=== PATIENT | male | born 1945 | race Caucasian/White ===

== ENCOUNTER 2020-05-30 21:54 | Emergency (ER) | payer MEDICARE, BC ==
[2020-05-30] MEDS ORDERED: DEXAMETHASONE INJ 4 MG/ML VIAL IV ONE (22:01)
--- NOTE | 2020-05-30 22:05 | ED.PDOC ---
History of Present Illness - General Chief Complaint: Respiratory Problem Stated Complaint: shortness of breath, + COVID Time Seen by Provider: 05/30/20 21:56 Source: patient, RN notes reviewed, Vital Signs reviewed Exam Limitations: no limitations - History of Present Illness Comments: Pt is a 74 yo male with PMH of afib, CAD who presents to ED with shortness of breath. States he had close contact with his granddaughter recently and she later tested + for COVID 19. States he began to have fatigue, nausea, bodyaches and cough 1 week ago and began feeling short of breath 2 days ago. He was seen in the [place] ED last night and tested positive for COVID and was discharged home on no medications. Tonight, he still feels short of breath so came to ED for evaluation. He denies CP, fever, vomiting or diarrhea. Allergies/Adverse Reactions: Allergies NO KNOWN ALLERGY Allergy (Verified 05/30/20 22:24) Home Medications: Ambulatory Orders Allopurinol [Zyloprim] 100 mg PO DAILY 05/30/20 Apixaban [Eliquis] 5 mg PO BID 05/30/20 Aspirin [Celia Low Dose] 81 mg PO DAILY 05/30/20 B-Complex W/ Folic Acid [B Complex] 1 tab PO DAILY 05/30/20 Furosemide [Lasix] 40 mg PO DAILY 05/30/20 Gabapentin 300 mg PO BID 05/30/20 Lisinopril 20 mg PO DAILY 05/30/20 Metoprolol Tartrate [Lopressor] 100 mg PO DAILY 05/30/20 Nitroglycerin 0.4 mg Tab [Nitrostat] 1 ea SL PRN PRN 05/30/20 Pantoprazole Tablet [Protonix] 40 mg PO DAILY 05/30/20 Pentoxifylline [TRENtal] 400 mg PO TID 05/30/20 Pravastatin Sodium 40 mg PO DAILY 05/30/20 Prednisone 40 mg PO DAILY 5 Days #10 tab 05/30/20 Spironolactone 25 mg PO DAILY 05/30/20 Review of Systems - Review of Systems Constitutional: States: malaise. Denies: chills, fever EENTM: Denies: nose congestion, throat pain Respiratory: States: cough, short of breath Cardiology: Denies: chest pain, edema, palpitations, syncope Gastrointestinal/Abdominal: States: nausea. Denies: abdominal pain, diarrhea, vomiting Musculoskeletal: Denies: back pain, neck pain Skin: Denies: rash Neurological: Denies: headache, numbness All other Systems: Reviewed and Negative Family Medical History - Family History Mother Family History: Unknown Physical Exam - Physical Exam General Appearance: Alert, No apparent distress, Other - Nontoxic appearing Neck: full range of motion, supple Respiratory: other - Good air movement. No wheezes or crackles. Speaks in full sentences. No respiratory distress or tachypnea Cardiovascular/Chest: regular rate, rhythm, no edema Gastrointestinal/Abdominal: non tender, soft, no pulsatile mass Extremity: normal range of motion, non-tender, no calf tenderness Neurologic: no motor/sensory deficits, alert, normal mood/affect Skin Exam: normal color, warm/dry Progress - Progress Progress: 05/30/20 22:08 Pt presents with shortness of breath and fatigue for the past week. He has had recent exposure to known COVID positive person and tested positive himself last night. He has no respiratory distress and O2 sat is 95% on room air. Will check labs and CXR for further evaluation. Differential: Pneumonia, sepsis, COVID, bronchitis, COPD, dysrrhythmia, ACS 05/30/20 23:06 Patient has had O2 sat greater than 94% on room air throughout ED stay. No hypoxia or respiratory distress. Vital signs, imaging and labs are reassuring. He does have a chronic history of atrial fibrillation and is on metoprolol and Eliquis. He has been rate controlled in the ED. Also has history of chronic kidney disease which is at baseline today per patient. Will treat with short course of steroids and he can take antihistamines as needed for nasal congestion. I have given him strict return to ED precautions and he feels comfortable going home and will follow up with PCP tomorrow for continued evaluation. Strict return precautions given. - Results/Orders Results/Orders: EKG- atrial fibrillation, rate 85, nml QRS interval, no T wave abnormality CHEST XRAY CLINICAL HISTORY: short of breath COMPARISON: None. TECHNIQUE: XR CHEST 1 VIEW 05/30/2020 10:00 PM CDT FINDINGS: The heart is mildly enlarged. There is minimal bibasilar atelectasis. There is no pleural effusion. There is no pneumothorax. There are no acute osseous findings. IMPRESSION: No definite pneumonia. 05/30/20 22:00 IV:Start .ONCE 05/30/20 22:15 EKG .ONCE Laboratory Results - last 24 hr 05/30/20 05/30/20 05/30/20 22:17 22:17 22:17 WBC 6.1 RBC 4.18 L Hgb 12.9 L Hct 37.7 L MCV 90.3 MCH 30.9 MCHC 34.2 RDW 14.9 H Plt Count 218 MPV 7.7 Absolute Neuts (auto) 3.80 Absolute Lymphs (auto) 1.50 Absolute Monos (auto) 0.80 Absolute Eos (auto) 0.00 Absolute Basos (auto) 0.00 Neutrophils % 61.6 Lymphocytes % 24.1 Monocytes % 13.5 H Eosinophils % 0.3 L Basophils % 0.5 Sodium 129 L Potassium 4.8 Chloride 95 L Carbon Dioxide 23 Anion Gap 15.8 BUN 19 H Creatinine 1.74 H BUN/Creatinine Ratio 10.9 Random Glucose 94 Serum Osmolality 260.9 L Calcium 9.0 Total Bilirubin 0.8 AST 26 ALT 16 Alkaline Phosphatase 45 Troponin I 0.02 B-Natriuretic Peptide 187.0 H Serum Total Protein 8.5 H Albumin 4.0 Globulin 4.5 H Albumin/Globulin Ratio 0.9 L Departure - Departure Clinical Impression: COVID-19 Dyspnea Qualifiers: Dyspnea type: unspecified Qualified Code(s): R06.00 - Dyspnea, unspecified Atrial fibrillation Qualifiers: Atrial fibrillation type: persistent (not longstanding) Qualified Code(s): I48.19 - Other persistent atrial fibrillation; I48.1 - Persistent atrial fibrillation Time of Disposition: 23:03 Disposition: Discharge to Home or Self Care Condition: Good Departure Forms: ED Discharge - Pt. Copy, Patient Portal Self Enrollment Instructions: Coronavirus Disease 2019 (COVID-19) Diet: resume usual diet Activity: increase activity as tolerated Referrals: CARRILLO HANDY [Primary Care Provider] - 1-2 Days Prescriptions: Prednisone 40 mg PO DAILY 5 Days #10 tab Home Medications: Ambulatory Orders Allopurinol [Zyloprim] 100 mg PO DAILY 05/30/20 Apixaban [Eliquis] 5 mg PO BID 05/30/20 Aspirin [Celia Low Dose] 81 mg PO DAILY 05/30/20 B-Complex W/ Folic Acid [B Complex] 1 tab PO DAILY 05/30/20 Furosemide [Lasix] 40 mg PO DAILY 10/12/20 Gabapentin 300 mg PO BID 05/30/20 Lisinopril 20 mg PO DAILY 05/30/20 Metoprolol Tartrate [Lopressor] 100 mg PO DAILY 05/30/20 Nitroglycerin 0.4 mg Tab [Nitrostat] 1 ea SL PRN PRN 05/30/20 Pantoprazole Tablet [Protonix] 40 mg PO DAILY 05/30/20 Pentoxifylline [TRENtal] 400 mg PO TID 05/30/20 Pravastatin Sodium 40 mg PO DAILY 05/30/20 Prednisone 40 mg PO DAILY 5 Days #10 tab 05/30/20 Spironolactone 25 mg PO DAILY 05/30/20 Additional Instructions: You have COVID 19. Your oxygen level has been normal in ED and chest xray shows no sign of pneumonia. We will start you on a short course of steroids and you can take Flonase of Claritin for nasal congestion. You will need to follow up with your PCP in 1-2 days for recheck.
--- NOTE | 2020-05-30 22:40 | RAD ---
CLINICAL HISTORY: short of breath COMPARISON: None. TECHNIQUE: XR CHEST 1 VIEW 05/30/2020 10:00 PM CDT FINDINGS: The heart is mildly enlarged. There is minimal bibasilar atelectasis. There is no pleural effusion. There is no pneumothorax. There are no acute osseous findings. IMPRESSION: No definite pneumonia. Electronically signed by: Ori Castano MD 05/30/2020 10:39 PM CDT
[2020-05-30 23:17] VITALS: TEMP 97.4
[2020-05-30 23:29] VITALS: BP 126/82; O2SAT 95
== END 2020-05-30 23:28 | disposition home or self-care (01) ==
LOC: ER 21:54
DX: U07.1 COVID-19 (principal); I48.19 Other persistent atrial fibrillation; I25.10 Atherosclerotic heart disease of native coronary artery without angina pectoris; Z79.899 Other long term (current) drug therapy; Z79.01 Long term (current) use of anticoagulants; Z79.82 Long term (current) use of aspirin
CPT/HCPCS: 36415; 71045; 80053; 83880; 84484; 85025; 93005; J1100